=== PATIENT | female | born 1950 | race Caucasian/White ===

== ENCOUNTER → 2020-07-19 08:24 | Outpatient (CLI) | payer MEDICARE, SELFPAY | PROVIDERS: Family Provider Family Medicine; PCP Physician Assistant; Visit Provider Physician Assistant | DX: N39.0 Urinary tract infection, site not specified (principal) | CPT/HCPCS: 87077; 87086; 87185; 87186 ==

== ENCOUNTER 2020-11-24 11:10 | Emergency (ER) | payer MEDICARE, MEDICAID, SELFPAY ==
[2020-11-24] VITALS (17 sets, daily range): BP systolic 106–153; BP diastolic 55–65; PULSE 54–78; RESP 10–22; TEMP 36.3–36.6; O2SAT 87–98; BMI 29.6
--- NOTE | 2020-11-24 11:50 | DI.RAD.S_ITS ---
PROCEDURE: XR CHEST 1V INDICATIONS: weakness TECHNIQUE: One view of the chest was acquired. COMPARISON: None. FINDINGS: Surgical changes and devices: None. Lungs and pleura: Lungs are clear. No pleural effusions or pneumothorax. Mediastinum: Mediastinal contours appear normal. Heart size is normal. Bones and chest wall: No suspicious bony lesions. Overlying soft tissues appear unremarkable. IMPRESSION: No acute cardiopulmonary disease process. Dictated by: Anel Webber MD, PhD on 11/24/2020 at 12:21 Approved by: Anel Webber MD, PhD on 11/24/2020 at 12:21
--- NOTE | 2020-11-24 11:53 | ED_ITS ---
HPI - Syncope General Chief Complaint: Dizziness Stated Complaint: Near Syncope,hypotensive,+orthostatics Time Seen by Provider: 11/24/20 11:50 Source: patient and EMS Mode of arrival: EMS Limitations: no limitations History of Present Illness HPI narrative: Patient is a 70-year-old female who fractured her left left ankle distal fibula August 09 when she fell down stairs. She was admitted at [facility] she says for 2 weeks his possibly complicated by UTI she then went to a rehab facility and was released about 2 weeks ago. I kit day she had some dizziness and was found to be hypotensive. She got up to take out the trash she came back and felt extremely dizzy and lightheaded she took her blood pressure and had a systolic in the 80s. EMS confirmed hypotension at which point air lift was called. Airlift did not have any issues with blood pressure she has been normotensive of for them. They think that she has had episodes of atrial flutter but is currently in normal sinus. Patient is experiencing some urinary incontinence. She says she mostly has it at night during the days she does okay. She has no dysuria or urinary frequency. No abdominal pain nausea or vomiting. She has not had any fever or chest pain. She denies any numbness tingling or weakness. Related Data Home Medications Medication Instructions Recorded Confirmed brimonidine 0.2 % eye drops drp EYE-BOTH BID ml 07/18/20 11/15/20 ibuprofen 200 mg capsule 400 mg PO Q6H 07/18/20 11/15/20 levothyroxine 88 mcg capsule 88 mcg PO DAILY 07/18/20 11/15/20 timolol 0.5 % eye drops drp EYE-BOTH BID ml 07/18/20 11/15/20 Previous Rx's Medication Instructions Recorded amlodipine 5 mg tablet 5 mg PO DAILY #30 tab 07/18/20 carvedilol 6.25 mg tablet 6.25 mg PO BID #60 tab 07/18/20 Allergies Allergy/AdvReac Type Severity Reaction Status Date / Time ELIAN Allergy Severe BLOCK Uncoded 11/15/20 09:08 AIRWAY Review of Systems Review of Systems Narrative: GENERAL: Denies chills, fatigue, malaise, fever, sweats, travel HEENT: Denies sinus pain, ear pain, sore throat, difficulty swallowing, neck pain RESPIRATORY: Denies dyspnea, cough, wheezing, hemoptysis, sputum. CARDIOVASCULAR: Denies chest pain, palpitations, orthopnea, edema GASTROINTESTINAL: Denies nausea, vomiting, abdominal pain, diarrhea, constipation, melena. : Denies dysuria, frequency, incontinence, hematuria, urinary retention, flank pain. MUSCULOSKELETAL: Denies weakness, joint pain, or bony pain SKIN: No rash, no erythema, no pruritus NEUROLOGIC: Dizziness PSYCHIATRIC: No concerning psychosocial issues. 12 point review of systems is negative except for those stated above and HPI Patient History Surgical History (Updated 07/22/17 @ 06:31 by Conversion Provider) History of tonsillectomy Status post arthroscopy Family History (Updated 10/27/14 @ 00:00 by Conversion Provider) Brother Age: 74 Glaucoma Leukemia Father Rheumatic fever Heart disease Mother Diabetes mellitus Mental health problem Grandfather Cancer Social History Smoking Status: Current every day smoker Smoking Status: Current every day smoker Exam Initial Vital Signs Initial Vital Signs: Vital Signs Temperature 97.4 F L 11/24/20 11:20 Pulse Rate 57 L 11/24/20 11:20 Respiratory Rate 18 11/24/20 11:20 Blood Pressure 138/61 11/24/20 11:20 Pulse Oximetry 98 11/24/20 11:20 GENERAL: Alert 70-year-old female in no acute distress. HEENT: Head atraumatic,EOMI, pupils reactive, face symmetric, moist mucous membranes CARDIOVASCULAR: Regular rate and rhythm without murmurs, rubs or gallops. RESPIRATORY: Breath sounds equal bilaterally, no wheezes rales or rhonchi. ABDOMEN: Soft, nontender. Normoactive bowel sounds all 4 quadrants. No guarding or rebound. : No CVA tenderness EXTREMITIES: Normal range of motion, no clubbing or edema. Neurovascularly i ntact. Left foot is in orthopedic boot Left ankle in orthopedic boot NEUROLOGICAL: Alert and oriented x4.Normal gait and speech. Cranial nerves II through XII grossly intact. 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 Course Orders Ordered: Discontinued Medications Ceftriaxone Sodium 1,000 mg/ (Sodium Chloride) 100 mls @ 200 mls/hr IV NOW ONE Stop: 11/24/20 15:03 Last Infusion: 11/24/20 15:37 Dose: 0 mls/hr Documented by: Admin: 11/24/20 15:22 Dose: 200 mls/hr Documented by: BARRY Vital Signs Vital signs: Vital Signs - 8 hr 11/24/20 11:20 11/24/20 11:23 11/24/20 11:30 Temperature 97.4 F L Pulse Rate 57 L 59 L 58 L Pulse Rate [Orthostatic Lying] Pulse Rate [Orthostatic Sitting] Pulse Rate [Orthostatic Standing] Respiratory Rate 18 17 15 Blood Pressure 138/61 139/64 137/63 Blood Pressure [Orthostatic Lying] Blood Pressure [Orthostatic Sitting] Blood Pressure [Orthostatic Standing] Pulse Oximetry 98 98 98 11/24/20 11:34 11/24/20 11:36 11/24/20 11:38 Temperature Pulse Rate 57 L 60 61 Pulse Rate [Orthostatic Lying] Pulse Rate [Orthostatic Sitting] Pulse Rate [Orthostatic Standing] Respiratory Rate 12 19 22 Blood Pressure 131/60 128/65 128/60 Blood Pressure [Orthostatic Lying] Blood Pressure [Orthostatic Sitting] Blood Pressure [Orthostatic Standing] Pulse Oximetry 93 87 L 97 11/24/20 11:41 11/24/20 12:00 11/24/20 12:30 Temperature Pulse Rate 60 57 L Pulse Rate [Orthostatic Lying] 55 L Pulse Rate [Orthostatic Sitting] 60 Pulse Rate [Orthostatic Standing] 61 Respiratory Rate 14 13 Blood Pressure Blood Pressure [Orthostatic Lying] 151/60 H Blood Pressure [Orthostatic Sitting] 128/65 Blood Pressure [Orthostatic Standing] 128/60 Pulse Oximetry 98 97 11/24/20 12:37 11/24/20 13:00 11/24/20 13:30 Temperature Pulse Rate 55 L 56 L 54 L Pulse Rate [Orthostatic Lying] Pulse Rate [Orthostatic Sitting] Pulse Rate [Orthostatic Standing] Respiratory Rate 13 14 13 Blood Pressure 129/60 126/61 115/57 L Blood Pressure [Orthostatic Lying] Blood Pressure [Orthostatic Sitting] Blood Pressure [Orthostatic Standing] Pulse Oximetry 98 98 98 11/24/20 13:45 11/24/20 14:00 11/24/20 14:30 Temperature Pulse Rate 62 55 L 61 Pulse Rate [Orthostatic Lying] Pulse Rate [Orthostatic Sitting] Pulse Rate [Orthostatic Standing] Respiratory Rate 18 10 L 20 Blood Pressure 114/58 L 106/55 L Blood Pressure [Orthostatic Lying] Blood Pressure [Orthostatic Sitting] Blood Pressure [Orthostatic Standing] Pulse Oximetry 94 96 98 11/24/20 14:31 Temperature Pulse Rate 60 Pulse Rate [Orthostatic Lying] Pulse Rate [Orthostatic Sitting] Pulse Rate [Orthostatic Standing] Respiratory Rate 19 Blood Pressure 153/65 H Blood Pressure [Orthostatic Lying] Blood Pressure [Orthostatic Sitting] Blood Pressure [Orthostatic Standing] Pulse Oximetry 98 MDM - Syncope Lab Data Result diagrams: 11/24/20 11:25 11/24/20 11:25 Labs: Lab Results 11/24/20 11/24/20 11/24/20 Range/Units 11:25 11:25 11:47 WBC 8.8 (4.5-11.0) X10^3/uL RBC 4.20 (4.0-5.2) X10^6/uL Hgb 12.5 (12.0-16.0) g/dL Hct 37.8 (36-46) % MCV 90.0 (80-100) fL MCH 29.8 (26-34) PG MCHC 33.1 (30-36) % RDW 14.0 (11.6-14.8) % Plt Count 266 (150-400) X10^3/uL Neut % (Auto) 64.1 (50-75) % Lymph % (Auto) 25.2 (25-40) % [place] % (Auto) 8.3 (3-14) % Eos % (Auto) 1.5 L (2-4) % Baso % (Auto) 0.9 (0-2) % Neut # (Auto) 5600 (3977-1645) /uL Lymph # (Auto) 2200 (2093-4484) /uL [place] # (Auto) 700 (0-900) /uL Eos # (Auto) 100 (0-450) /uL Baso # (Auto) 100 (0-100) /uL Sodium 139 (137-145) mmol/L Potassium 4.3 (3.4-5.1) mmol/L Chloride 110 H (98-107) mmol/L Carbon Dioxide 25 (22-32) mmol/L BUN 25 H (7-17) mg/dL Creatinine 0.80 (0.52-1.04) mg/dL Estimated GFR > 60.0 (>60) mL/min BUN/Creatinine Ratio 31.3 H (6-22) Glucose 105 (80-110) mg/dL Lactate (0.7-2.1) mmol/L Calcium 9.5 (8.4-10.2) mg/dL Total Bilirubin 0.4 (0.2-1.3) mg/dL AST 35 (14-36) IU/L ALT 13 (<35) IU/L Alkaline Phosphatase 95 (38-126) U/L Total Creatine Kinase 57 (30-135) U/L CK-MB (CK-2) TNP CK-MB (CK-2) Rel Index TNP Troponin I < 0.012 (0.01-0.034) ng/mL Total Protein 7.1 (6.3-8.2) g/dL Albumin 4.2 (3.5-5.0) g/dL Globulin 2.9 (1.7-4.1) g/dL Albumin/Globulin Ratio 1.4 (1.0-2.8) Procalcitonin 0.06 (<0.5) ng/mL Urine Color Yellow Urine Appearance Cloudy Urine pH 7.5 (4.5-8.0) Ur Specific [place] 1.015 (1.000-1.035) Urine Protein 1+ H (Negative) Urine Glucose (UA) Negative (Negative) g/dL Urine Ketones Trace H (NEGATIVE) Urine Occult Blood Trace-intact (Negative) Urine Nitrate Negative (Negative) Urine Bilirubin Negative (NEGATIVE) Urine Urobilinogen 0.2 (0.2) E.U./dL Ur Leukocyte Esterase 3+ H (NEGATIVE) Urine RBC None seen (0-5/HPF) Urine WBC 5-10/hpf H (0-5/HPF) Triple Phos Crystals Few Amorphous Sediment 3+ Urine Bacteria Moderate (10-30) H (None) Ur Culture Indicated? Specimen cultured 11/24/20 Range/Units 12:24 WBC (4.5-11.0) X10^3/uL RBC (4.0-5.2) X10^6/uL Hgb (12.0-16.0) g/dL Hct (36-46) % MCV (80-100) fL MCH (26-34) PG MCHC (30-36) % RDW (11.6-14.8) % Plt Count (150-400) X10^3/uL Neut % (Auto) (50-75) % Lymph % (Auto) (25-40) % [place] % (Auto) (3-14) % Eos % (Auto) (2-4) % Baso % (Auto) (0-2) % Neut # (Auto) (2982-6340) /uL Lymph # (Auto) (6069-0767) /uL [place] # (Auto) (0-900) /uL Eos # (Auto) (0-450) /uL Baso # (Auto) (0-100) /uL Sodium (137-145) mmol/L Potassium (3.4-5.1) mmol/L Chloride (98-107) mmol/L Carbon Dioxide (22-32) mmol/L BUN (7-17) mg/dL Creatinine (0.52-1.04) mg/dL Estimated GFR (>60) mL/min BUN/Creatinine Ratio (6-22) Glucose (80-110) mg/dL Lactate 0.8 (0.7-2.1) mmol/L Calcium (8.4-10.2) mg/dL Total Bilirubin (0.2-1.3) mg/dL AST (14-36) IU/L ALT (<35) IU/L Alkaline Phosphatase (38-126) U/L Total Creatine Kinase (30-135) U/L CK-MB (CK-2) CK-MB (CK-2) Rel Index Troponin I (0.01-0.034) ng/mL Total Protein (6.3-8.2) g/dL Albumin (3.5-5.0) g/dL Globulin (1.7-4.1) g/dL Albumin/Globulin Ratio (1.0-2.8) Procalcitonin (<0.5) ng/mL Urine Color Urine Appearance Urine pH (4.5-8.0) Ur Specific [place] (1.000-1.035) Urine Protein (Negative) Urine Glucose (UA) (Negative) g/dL Urine Ketones (NEGATIVE) Urine Occult Blood (Negative) Urine Nitrate (Negative) Urine Bilirubin (NEGATIVE) Urine Urobilinogen (0.2) E.U./dL Ur Leukocyte Esterase (NEGATIVE) Urine RBC (0-5/HPF) Urine WBC (0-5/HPF) Triple Phos Crystals Amorphous Sediment Urine Bacteria (None) Ur Culture Indicated? Imaging Data Chest x-ray: Radiologist's Impression: PROCEDURE:? XR CHEST 1V ? INDICATIONS:? weakness ? TECHNIQUE:? One view of the chest was acquired.? ? COMPARISON:? None. ? FINDINGS:? ? Surgical changes and devices:? None.? ? Lungs and pleura:? Lungs are clear.? No pleural effusions or pneumothorax.? ? Mediastinum:? Mediastinal contours appear normal.? Heart size is normal.? ? Bones and chest wall:? No suspicious bony lesions.? Overlying soft tissues appear unremarkable.? ? IMPRESSION:? No acute cardiopulmonary disease process. ? ? Dictated by: Anel Webber MD, PhD on 11/24/2020 at 12:21 ? ? ECG Data Interpretation: Normal sinus rhythm rate 53, MN interval 172 QRS [address] changes, T-wave inversion noted in lead 3 only MDM Narrative Medical decision making narrative: The patient's blood pressure has been in normal limits here she is found have a UTI but is not septic. She is able to get up and get around at her baseline. At this time does not meet criteria for admission, she is given 1 dose of Rocephin in the emergency department. And is waiting for her ride. Discharge Plan Departure Patient Disposition: Home Clinical Impression: Acute UTI Instructions: DI for Urinary Tract Infection (UTI) Activity Restrictions/Additional Instructions: *You have been diagnosed with UTI *What to do: At this time blood work is overall reassuring. You Are found to have a bladder infection. Increasing fluid intake, blood pressure was low likely due to infection and decreased intake. *Continue to take medications as directed Keflex 500 mg twice a day for 7 days for UTI *Follow up with your primary care provider in 2-3 days *Return to ER if you should have being weakness, dizziness, lightheadednessor any new, worsening or concerning symptoms Prescriptions: No Action brimonidine 0.2 % drops EYE-BOTH BID RF: 0 levothyroxine 88 mcg capsule 88 mcg PO DAILY RF: 0 timolol 0.5 % drops EYE-BOTH BID RF: 0 ibuprofen 200 mg capsule 400 mg PO Q6H RF: 0 carvedilol 6.25 mg tablet 6.25 mg PO BID Qty: 60 RF: 0 amlodipine 5 mg tablet 5 mg PO DAILY Qty: 30 RF: 0 Referrals: Flaquita Lemos PA-C [Primary Care Provider] -
[2020-11-24 11:56] LABS: Bilirubin Urine UA NEGATIVE (NEGATIVE); Color Urine UA YELLOW; Glucose Urine UA NEGATIVE (Negative); Ketones Urine UA TRACE (NEGATIVE); Leukocyte Esterase Urine UA 3+ (NEGATIVE); Nitrite Urine UA NEGATIVE (Negative); Occult Blood Urine UA TRACE-INTACT (Negative); Protein Urine UA 1+ (Negative); Specific Gravity Urine UA 1.015 (1.000-1.035); Urobilinogen Urine UA 0.2 E.U./dL (0.2)
[2020-11-24 11:57] LABS: RBC Urine None Seen (0-5/HPF)
[2020-11-24 11:58] LABS: Add Manual Diff / Slide Review NO; Basophils Absolute Auto 100 /uL (0-100); Basophils Percent Auto 0.9 % (0-2); Eosinophils Absolute Auto 100 /uL (0-450); Eosinophils Percent Auto 1.5 % (2-4); Hematocrit 37.8 % (36-46); Hemoglobin 12.5 g/dL (12.0-16.0); Lymphocytes Absolute Auto 2200 /uL (1100-4500); Lymphocytes Percent Auto 25.2 % (25-40); Mean Corpuscular HGB Conc 33.1 % (30-36); Mean Corpuscular Hemoglobin 29.8 PG (26-34); Monocytes Absolute Auto 700 /uL (0-900); Monocytes Percent Auto 8.3 % (3-14); Neutrophils Absolute Auto 5600 /uL (1500-7000); Neutrophils Percent Auto 64.1 % (50-75); Platelet Count 266 X10^3/uL (150-400); White Blood Cell Count 8.8 X10^3/uL (4.5-11.0)
[2020-11-24 12:04] LABS: Alanine Aminotransferase 13 IU/L (<35); Albumin 4.2 g/dL (3.5-5.0); Albumin Globulin Ratio 1.4 (1.0-2.8); Alkaline Phosphatase 95 U/L (38-126); Aspartate Aminotransferase 35 IU/L (14-36); BUN Creatinine Ratio 31.3 (6-22); Bilirubin Total 0.4 mg/dL (0.2-1.3); Blood Urea Nitrogen 25 mg/dL (7-17); Calcium 9.5 mg/dL (8.4-10.2); Carbon Dioxide 25 mmol/L (22-32); Chloride 110 mmol/L (98-107); Creatine Kinase 57 U/L (30-135); Estimated Glomerular Filt Rate > 60.0 mL/min (>60); Globulin 2.9 g/dL (1.7-4.1); Glucose 105 mg/dL (80-110); HEMOLYSIS < 15 (0-50); Potassium 4.3 mmol/L (3.4-5.1); Sodium 139 mmol/L (137-145); Total Protein 7.1 g/dL (6.3-8.2)
[2020-11-24 12:09] LABS: Appearance Urine UA CLOUDY; pH Urine UA 7.5 (4.5-8.0)
[2020-11-24 12:12] LABS: Amorphous Sediment Urine 3+; Bacteria Urine Moderate (10-30); Culture Indicated Urine Specimen Cultured; Triple Phosphate Crystal Urine Few; WBC Urine 5-10/HPF (0-5/HPF)
[2020-11-24 12:16] LABS: Troponin I < 0.012 ng/mL (0.01-0.034)
[2020-11-24 12:21] LABS: Procalcitonin 0.06 ng/mL (<0.5)
[2020-11-24 12:52] LABS: Lactate (Lactic Acid) 0.8 mmol/L (0.7-2.1)
[2020-11-24] MEDS: cefTRIAXone 1,000 MG in SODIUM CHLORIDE 0.9% 100 ML 200 ML IV (15:22)
== END 2020-11-24 17:52 | disposition home or self-care (01) ==
PROVIDERS: Emergency Provider Emergency Medicine; Family Provider Family Medicine; PCP Physician Assistant
DX: N39.0 Urinary tract infection, site not specified (principal); I95.9 Hypotension, unspecified; R53.1 Weakness; R55 Syncope and collapse
CPT/HCPCS: 36415; 71045; 80053; 81001; 82550; 83605; 84145; 84484; 85025; 87040; 87086; 93005; 96374; 99284; J0696

== ENCOUNTER → 2021-01-16 12:11 | Outpatient (CLI) | payer MEDICARE, MEDICAID, SELFPAY ==
[2021-01-16 19:27] LABS: Cholesterol 250 mg/dL (140-199); HDL Cholesterol 69 mg/dL (40-60); LDL Cholesterol Calculated 150 mg/dL (<100); Triglycerides 153 mg/dL (35-150)
[2021-01-16 19:36] LABS: Free T3, Triiodothyronine Free 2.75 pg/mL (2.77-5.27); Free T4, Direct Thyroxine 1.36 ng/dL (0.78-2.19)
== END ==
PROVIDERS: Family Provider Family Medicine; PCP Physician Assistant; Referring Provider Physician Assistant; Visit Provider Physician Assistant
DX: I10 Essential (primary) hypertension (principal); E03.9 Hypothyroidism, unspecified; Z13.220 Encounter for screening for lipoid disorders
CPT/HCPCS: 80061; 84439; 84443; 84481

== ENCOUNTER → 2021-01-25 12:07 | Outpatient (CLI) | payer MEDICARE, MEDICAID, SELFPAY ==
[2021-01-25 18:57] LABS: Free T3, Triiodothyronine Free 3.22 pg/mL (2.77-5.27)
[2021-01-25 19:08] LABS: TSH w/ Reflex to FT4 6.04 uIU/mL (0.47-4.68)
== END ==
PROVIDERS: Family Provider Family Medicine; PCP Physician Assistant; Visit Provider Physician Assistant
DX: E03.9 Hypothyroidism, unspecified (principal)
CPT/HCPCS: 84439; 84443; 84481

== ENCOUNTER → 2021-05-14 12:04 | Outpatient (CLI) | payer MEDICARE, SELFPAY ==
[2021-05-14 19:57] LABS: Alanine Aminotransferase 16 IU/L (<35); Albumin 4.4 g/dL (3.5-5.0); Albumin Globulin Ratio 1.4 (1.0-2.8); Alkaline Phosphatase 101 U/L (38-126); Aspartate Aminotransferase 23 IU/L (14-36); BUN Creatinine Ratio 20.7 (6-22); Bilirubin Total 0.7 mg/dL (0.2-1.3); Blood Urea Nitrogen 17 mg/dL (7-17); Calcium 9.8 mg/dL (8.4-10.2); Carbon Dioxide 32 mmol/L (22-32); Chloride 106 mmol/L (98-107); Cholesterol 268 mg/dL (140-199); Estimated Glomerular Filt Rate > 60.0 mL/min (>60); Globulin 3.2 g/dL (1.7-4.1); Glucose 101 mg/dL (80-110); HDL Cholesterol 70 mg/dL (40-60); HEMOLYSIS < 15 (0-50); LDL Cholesterol Calculated 169 mg/dL (<100); Potassium 4.4 mmol/L (3.4-5.1); Sodium 140 mmol/L (137-145); Total Protein 7.6 g/dL (6.3-8.2); Triglycerides 146 mg/dL (35-150)
[2021-05-14 20:31] LABS: TSH w/ Reflex to FT4 3.01 uIU/mL (0.47-4.68)
== END ==
PROVIDERS: Family Provider Family Medicine; PCP Physician Assistant; Visit Provider Physician Assistant
DX: E03.9 Hypothyroidism, unspecified (principal); I10 Essential (primary) hypertension; R60.0 Localized edema; Z13.220 Encounter for screening for lipoid disorders
CPT/HCPCS: 80053; 80061; 84443